=== PATIENT | male | born 1945 | race Caucasian/White ===

== ENCOUNTER 2018-07-30 17:46 | Emergency (ER) | payer MEDICARE ==
[~2018-07-30] VITALS: Ht 181.6 cm; Wt 127.3 kg
[~2018-07-30 17:46] MED LIST: ASPI-1264 PO; CARV-49 PO; COLE3.75 PO; FURO80TA87 PO; LOSA50TA3 PO; NITR0.4T51 SL; POTA20TA19 PO; UBID300C PO
[2018-07-30] MEDS ORDERED: TETanus/Pertussis (Acell)/Diphther VAC/PF (Tdap-Adult) 0.5ml syringe IM ONE (18:10)
[2018-07-30] MEDS ORDERED: LIDOcaine 1% w/epiNEPHrine 1:200,000 30ml vial IM ONE (18:10)
--- NOTE | 2018-07-30 18:41 | NUR ---
RT AT BEDSIDE
[2018-07-30 19:04] VITALS: BP 166/81
== END 2018-07-30 19:11 | disposition home or self-care (01) ==
LOC: ER 17:47
DX: S81.811A Laceration without foreign body, right lower leg, initial encounter (principal); I10 Essential (primary) hypertension; E11.9 Type 2 diabetes mellitus without complications; G89.29 Other chronic pain; Z90.49 Acquired absence of other specified parts of digestive tract; Z98.890 Other specified postprocedural states; Z79.82 Long term (current) use of aspirin; Z79.899 Other long term (current) drug therapy; W22.8XXA Striking against or struck by other objects, initial encounter; Y93.89 Activity, other specified; Y92.89 Other specified places as the place of occurrence of the external cause; Y99.8 Other external cause status
CPT/HCPCS: 12004; 90471; 90715; 99283; J3490

== ENCOUNTER 2019-08-12 12:50 | Emergency (ER) | payer MEDICARE ==
[~2019-08-12] VITALS: Ht 208.3 cm; Wt 129.0 kg
[2019-08-12 12:55] VITALS: BP 138/58
[2019-08-12] MEDS ORDERED: CEPH-572 PO (15:45)
== END 2019-08-12 15:58 | disposition home or self-care (01) ==
LOC: ER 12:51
DX: S80.11XA Contusion of right lower leg, initial encounter (principal); L03.115 Cellulitis of right lower limb; I10 Essential (primary) hypertension; E11.9 Type 2 diabetes mellitus without complications; G89.29 Other chronic pain; Z90.49 Acquired absence of other specified parts of digestive tract; Z90.89 Acquired absence of other organs; Z98.890 Other specified postprocedural states; Z79.82 Long term (current) use of aspirin; Z79.899 Other long term (current) drug therapy; W01.0XXA Fall on same level from slipping, tripping and stumbling without subsequent striking against object, initial encounter; Y93.89 Activity, other specified; Y92.89 Other specified places as the place of occurrence of the external cause; Y99.8 Other external cause status
CPT/HCPCS: 73590; 93971; 99284